=== PATIENT | male | born 1955 | race Caucasian/White ===

== ENCOUNTER 2018-06-30 16:28 | Inpatient (IN) | payer BC, OTHER ==
[2018-06-30] MEDS ORDERED: Lidocaine 2% Jelly 10 ML Urojet ONE (17:15)
[2018-06-30] MEDS ORDERED: Lidocaine 2% Jelly 10 ML Urojet MUCMEM ONE (17:16)
[2018-06-30] MEDS ORDERED: Sodium Chloride 0.9% 10 ML Syringe FLUSH PRN (18:18)
--- NOTE | 2018-06-30 18:21 | EDM.PDOC ---
ED HPI GENERAL MEDICAL PROBLEM - General Chief Complaint: Genitourinary Problem Stated Complaint: UTI Time Seen by Provider: 06/30/18 17:45 Source of Information: Reports: Patient, Family, RN Notes Reviewed History Limitations: Reports: No Limitations - History of Present Illness INITIAL COMMENTS - FREE TEXT/NARRATIVE: Franko presents today with complaints of urgency, abdominal pain, malaise, fever , and feeling confused with urinary retention since last night at 2200. He reports history of enlarged prostate and yearly visits with urology of [place], [place]. He also reports past urinary tract infections, last being in Feb, 2018. Bladder Pain Score (Numeric/FACES): 5 - Related Data Allergies Allergy/AdvReac Type Severity Reaction Status Date / Time No Known Allergies Allergy Verified 06/30/18 17:09 Home Meds: Home Meds Tamsulosin HCl 0.4 mg PO DAILY 06/30/18 [History] Past Medical History Gastrointestinal History: Reports: Colon Polyp Genitourinary History: Reports: Prostate Disorder, UTI, Recurrent - Infectious Disease History Infectious Disease History: Reports: Hepatitis B - Past Surgical History GI Surgical History: Reports: Colonoscopy, Hernia, Inguinal, Hernia Repair/Other Male Surgical History: Reports: Circumcision Musculoskeletal Surgical History: Reports: Carpal Tunnel Social & Family History - Tobacco Use Smoking Status *Q: Never Smoker - Caffeine Use Caffeine Use: Reports: Coffee - Recreational Drug Use Recreational Drug Use: No ED ROS GENERAL - Review of Systems Review Of Systems: See Below Constitutional: Reports: Fever, Chills, Malaise. Denies: Weakness HEENT: Reports: No Symptoms Respiratory: Reports: No Symptoms Cardiovascular: Reports: No Symptoms Endocrine: Reports: No Symptoms GI/Abdominal: Reports: Abdominal Pain : Reports: Flank Pain, Urgency, Urinary Retention Musculoskeletal: Reports: No Symptoms Skin: Reports: No Symptoms Neurological: Reports: No Symptoms Psychiatric: Reports: No Symptoms Hematologic/Lymphatic: Reports: No Symptoms Immunologic: Reports: No Symptoms ED EXAM, RENAL/ - Physical Exam Exam: See Below Text/Narrative:: Franko is an alert and oriented 63 ear old male presenting with fever, chills, malaise, bilateral flank pain, suprapubic pain, urinary retention with minimal urine output since 2200 last night. Exam Limited By: No Limitations General Appearance: Alert, WD/WN, Moderate Distress Eye Exam: Bilateral Eye: EOMI, Normal Inspection, PERRL Ears: Normal External Exam, Normal Canal, Hearing Grossly Normal, Normal TMs Nose: Normal Inspection, Normal Mucosa, No Blood Throat/Mouth: Normal Inspection, Normal Lips, Normal Gums, Normal Oropharynx, Normal Voice, No Airway Compromise Head: Atraumatic, Normocephalic Neck: Normal Inspection, Supple, Non-Tender, Full Range of Motion. No: Lymphadenopathy (R), Lymphadenopathy (L) Respiratory/Chest: No Respiratory Distress, Lungs Clear, Normal Breath Sounds, No Accessory Muscle Use, Chest Non-Tender Cardiovascular: Normal Peripheral Pulses, Regular Rate, Rhythm, No Edema, No Murmur, No Rub GI/Abdominal: Normal Bowel Sounds, Soft, No Distention, Other (Tenderness to suprapubic area). No: No Mass, Guarding, Rigid, Rebound Back Exam: Normal Inspection, Full Range of Motion, CVA Tenderness (R), CVA Tenderness (L) Extremities: Normal Inspection, Normal Range of Motion, Non-Tender, No Pedal Edema, Normal Capillary Refill Neurological: Alert, Oriented, CN II-XII Intact, Normal Cognition, Normal Gait, No Motor/Sensory Deficits, Other (He complains of feeling foggy/confused however he is alert and oriented. ) Psychiatric: Normal Affect, Normal Mood Skin Exam: Dry, Intact, Increased Warmth, Other (flushed) Lymphatic: No Adenopathy Course - Vital Signs Last Recorded V/S: Last Vital Signs Temp 38.5 C H 06/30/18 19:13 Pulse 94 06/30/18 20:34 Resp 16 06/30/18 19:13 BP 118/62 06/30/18 20:34 Pulse Ox 97 06/30/18 20:34 - Orders/Labs/Meds Orders: Active Orders 24 hr Category Date Time Status Jean Catheter Insertion [Insert Urinary Catheter] [OM. Care 06/30/18 17:15 Ordered PC] Q24H Urinary Catheter Assessment [RC] ASDIRECTED Care 06/30/18 17:15 Active Abdomen Pelvis w wo Cont [CT] Stat Exams 06/30/18 19:41 Taken CULTURE URINE [RM] Stat Lab 06/30/18 18:18 Received URINALYSIS W/MICROSCOPIC [UA W/MICROSCOPIC] [URIN] Stat Lab 06/30/18 17:40 Ordered Iopamidol [Isovue-300 (61%)] Med 06/30/18 20:00 Active 100 ml IV . DIRECTED Lactated Ringers [Ringers, Lactated] 1,000 ml Med 06/30/18 20:45 Active IV ASDIRECTED Sodium Chloride 0.9% [Normal Saline] 1,000 ml Med 06/30/18 18:30 Active IV ASDIRECTED Sodium Chloride 0.9% [Saline Flush] Med 06/30/18 18:18 Active 10 ml FLUSH ASDIRECTED PRN Saline Lock Insert [OM.PC] Routine Oth 06/30/18 18:18 Ordered Medication Orders Sodium Chloride (Normal Saline) 1,000 mls @ 1,000 mls/hr IV ASDIRECTED JAMSHID Last Admin: 06/30/18 18:25 Dose: 1,000 mls/hr Lactated Ringer's (Ringers, Lactated) 1,000 mls @ 250 mls/hr IV ASDIRECTED JAMSHID Iopamidol (Isovue-300 (61%)) 100 ml IV . DIRECTED JAMSHID Last Admin: 06/30/18 20:28 Dose: 100 ml Sodium Chloride (Saline Flush) 10 ml FLUSH ASDIRECTED PRN PRN Reason: Keep Vein Open Last Admin: 06/30/18 18:26 Dose: 10 ml Labs: Laboratory Tests 06/30/18 06/30/18 06/30/18 Range/Units 17:40 18:20 18:20 WBC 16.0 H (4.5-11.0) K/uL RBC 4.58 (4.30-5.90) M/uL Hgb 14.6 (12.0-15.0) g/dL Hct 42.2 (40.0-54.0) % MCV 92 (80-98) fL MCH 32 H (27-31) pg MCHC 35 (32-36) % Plt Count 209 (150-400) K/uL Neut % (Auto) 86 H (36-66) % Lymph % (Auto) 4 L (24-44) % [place] % (Auto) 9 H (2-6) % Eos % (Auto) 0 L (2-4) % Baso % (Auto) 0 (0-1) % Sodium 131 L (140-148) mmol/L Potassium 3.5 L (3.6-5.2) mmol/L Chloride 99 L (100-108) mmol/L Carbon Dioxide 22 (21-32) mmol/L Anion Gap 13.5 (5.0-14.0) mmol/L BUN 18 (7-18) mg/dL Creatinine 1.2 (0.8-1.3) mg/dL Est Cr Clr Drug Dosing 56.12 mL/min Estimated GFR (MDRD) > 60 (>60) Glucose 107 H (74-106) mg/dL Lactic Acid (0.4-2.0) mmol/L Calcium 8.5 (8.5-10.1) mg/dL Total Bilirubin 0.7 (0.2-1.0) mg/dL AST 15 (15-37) U/L ALT 17 (12-78) U/L Alkaline Phosphatase 79 (46-116) U/L C-Reactive Protein (0.0-0.3) mg/dL Total Protein 6.6 (6.4-8.2) g/dL Albumin 3.0 L (3.4-5.0) g/dL Globulin 3.6 H (2.3-3.5) g/dL Albumin/Globulin Ratio 0.8 L (1.2-2.2) Prostate Specific Ag (0.0-4.0) ug/L Urine Color Yellow Urine Appearance Slightly cloudy Urine pH 7.0 (4.5-8.0) Ur Specific Pillow 1.010 (1.008-1.030) Urine Protein Negative (NEGATIVE) mg/dL Urine Glucose (UA) Normal (NEGATIVE) mg/dL Urine Ketones Negative (NEGATIVE) mg/dL Urine Occult Blood Negative (NEGATIVE) Urine Nitrite Negative (NEGAITVE) Urine Bilirubin Negative (NEGATIVE) Urine Urobilinogen Normal (NORMAL) mg/dL Ur Leukocyte Esterase Moderate (NEGATIVE) Urine RBC 0-5 (0-5) Urine WBC 10-20 H (0-5) Ur Epithelial Cells Not seen Amorphous Sediment Rare Urine Bacteria Not seen Urine Mucus Not seen 06/30/18 06/30/18 06/30/18 Range/Units 18:20 18:20 18:20 WBC (4.5-11.0) K/uL RBC (4.30-5.90) M/uL Hgb (12.0-15.0) g/dL Hct (40.0-54.0) % MCV (80-98) fL MCH (27-31) pg MCHC (32-36) % Plt Count (150-400) K/uL Neut % (Auto) (36-66) % Lymph % (Auto) (24-44) % [place] % (Auto) (2-6) % Eos % (Auto) (2-4) % Baso % (Auto) (0-1) % Sodium (140-148) mmol/L Potassium (3.6-5.2) mmol/L Chloride (100-108) mmol/L Carbon Dioxide (21-32) mmol/L Anion Gap (5.0-14.0) mmol/L BUN (7-18) mg/dL Creatinine (0.8-1.3) mg/dL Est Cr Clr Drug Dosing mL/min Estimated GFR (MDRD) (>60) Glucose (74-106) mg/dL Lactic Acid 1.0 (0.4-2.0) mmol/L Calcium (8.5-10.1) mg/dL Total Bilirubin (0.2-1.0) mg/dL AST (15-37) U/L ALT (12-78) U/L Alkaline Phosphatase (46-116) U/L C-Reactive Protein 3.70 H (0.0-0.3) mg/dL Total Protein (6.4-8.2) g/dL Albumin (3.4-5.0) g/dL Globulin (2.3-3.5) g/dL Albumin/Globulin Ratio (1.2-2.2) Prostate Specific Ag 10.1 H (0.0-4.0) ug/L Urine Color Urine Appearance Urine pH (4.5-8.0) Ur Specific Pillow (1.008-1.030) Urine Protein (NEGATIVE) mg/dL Urine Glucose (UA) (NEGATIVE) mg/dL Urine Ketones (NEGATIVE) mg/dL Urine Occult Blood (NEGATIVE) Urine Nitrite (NEGAITVE) Urine Bilirubin (NEGATIVE) Urine Urobilinogen (NORMAL) mg/dL Ur Leukocyte Esterase (NEGATIVE) Urine RBC (0-5) Urine WBC (0-5) Ur Epithelial Cells Amorphous Sediment Urine Bacteria Urine Mucus Patient lab work reviewed with him, we will complete abdominal/pelvis CT with and without contrast. Meds: Medications Generic Name Dose Route Start Last Admin Trade Name Freq PRN Reason Stop Dose Admin Sodium Chloride 1,000 mls @ 1,000 mls/hr 06/30/18 18:30 06/30/18 18:25 Normal Saline IV 1,000 mls/hr ASDIRECTED JAMSHID Administration Lactated Ringer's 1,000 mls @ 250 mls/hr 06/30/18 20:45 Ringers, Lactated IV ASDIRECTED JAMSHID Iopamidol 100 ml 06/30/18 20:00 06/30/18 20:28 Isovue-300 (61%) IV 100 ml . DIRECTED JAMSHID Administration Sodium Chloride 10 ml 06/30/18 18:18 06/30/18 18:26 Saline Flush FLUSH 10 ml ASDIRECTED PRN Administration Keep Vein Open Discontinued Medications Generic Name Dose Route Start Last Admin Trade Name Kimaniq PRN Reason Stop Dose Admin Acetaminophen 1,000 mg/ Premix 100 mls @ 400 mls/hr 06/30/18 19:23 06/30/18 19:41 IV 06/30/18 19:37 400 mls/hr NOW ONE Administration Sodium Chloride 80 mls @ 3.5 mls/sec 06/30/18 19:56 06/30/18 20:28 Normal Saline IV 06/30/18 19:57 3 mls/sec ONETIME ONE Administration Ibuprofen 800 mg 06/30/18 21:30 Motrin PO 06/30/18 21:31 ONETIME ONE Lidocaine HCl 10 ml 06/30/18 17:16 06/30/18 17:25 Xylocaine 2% Jelly MUCMEM 06/30/18 17:17 10 ml ONETIME ONE Administration Lidocaine HCl Confirm 06/30/18 17:15 06/30/18 17:25 Xylocaine 2% Jelly Administered 06/30/18 17:16 Not Given Dose 10 ml .ROUTE .STK-MED ONE Sodium Chloride 10 ml 06/30/18 19:56 06/30/18 20:28 Saline Flush FLUSH 06/30/18 19:57 10 ml ONETIME ONE Administration Temperature recheck = 102.5 F, patient will be provided ibuprofen 800mg PO. Patient case discussed with Dr. Russell, Dr. Maloney from the [place] and Leigh Nascimento NP. Franko will be admitted for rever, UTI. Patient and his son are in agreement with plan. - Radiology Interpretation Free Text/Narrative:: CT scan of abdomen and pelvis with and without contrast impression: No hydronephrosis. Urinary bladder is catheterized and fully decompressed. Diffuse colonic diverticulosis. Prostate gland hypertrophy. - Re-Assessments/Exams Free Text/Narrative Re-Assessment/Exam: 06/30/18 20:[address] scan Free Text/Narrative Re-Assessment/Exam: 06/30/18 21:[address] Jaclyn Maloney [facility], patient is approved to be admitted for care in [facility] Departure - Departure Time of Disposition: 21:39 Disposition: Admitted As Inpatient 65 Condition: Fair Clinical Impression: UTI, Urinary tract infectious disease, Fever - Discharge Information *PRESCRIPTION DRUG MONITORING PROGRAM REVIEWED*: No *COPY OF PRESCRIPTION DRUG MONITORING REPORT IN PATIENT NELIDA: No Referrals: PCP,None [Primary Care Provider] - Forms: ED Department Discharge - My Orders Last 24 Hours: My Active Orders 06/30/18 17:15 Jean Catheter Insertion [Insert Urinary Catheter] [OM.PC] Q24H Urinary Catheter Assessment [RC] ASDIRECTED 06/30/18 17:40 URINALYSIS W/MICROSCOPIC [UA W/MICROSCOPIC] [URIN] Stat 06/30/18 18:18 CULTURE URINE [RM] Stat Sodium Chloride 0.9% [Saline Flush] 10 ml FLUSH ASDIRECTED PRN Saline Lock Insert [OM.PC] Routine 06/30/18 18:30 Sodium Chloride 0.9% [Normal Saline] 1,000 ml IV ASDIRECTED 06/30/18 19:41 Abdomen Pelvis w wo Cont [CT] Stat 06/30/18 20:00 Iopamidol [Isovue-300 (61%)] 100 ml IV . DIRECTED 06/30/18 20:45 Lactated Ringers [Ringers, Lactated] 1,000 ml IV ASDIRECTED - Assessment/Plan Last 24 Hours: My Active Orders 06/30/18 17:15 Jean Catheter Insertion [Insert Urinary Catheter] [OM.PC] Q24H Urinary Catheter Assessment [RC] ASDIRECTED 06/30/18 17:40 URINALYSIS W/MICROSCOPIC [UA W/MICROSCOPIC] [URIN] Stat 06/30/18 18:18 CULTURE URINE [RM] Stat Sodium Chloride 0.9% [Saline Flush] 10 ml FLUSH ASDIRECTED PRN Saline Lock Insert [OM.PC] Routine 06/30/18 18:30 Sodium Chloride 0.9% [Normal Saline] 1,000 ml IV ASDIRECTED 06/30/18 19:41 Abdomen Pelvis w wo Cont [CT] Stat 06/30/18 20:00 Iopamidol [Isovue-300 (61%)] 100 ml IV . DIRECTED 06/30/18 20:45 Lactated Ringers [Ringers, Lactated] 1,000 ml IV ASDIRECTED Assessment:: Fever UTI Plan: Patient will be admitted per Nichelle aNscimento NP.
[2018-06-30] MEDS ORDERED: Sodium Chloride 0.9% 1,000 ML IV SCH ×2 (18:30→22:58)
[2018-06-30] MEDS ORDERED: Acetaminophen 1,000 MG in Premix Bag 1 BAG IV ONE (19:23)
[2018-06-30] MEDS ORDERED: Sodium Chloride 0.9% 80 ML IV ONE (19:56)
[2018-06-30] MEDS ORDERED: Sodium Chloride 0.9% 10 ML Syringe FLUSH ONE (19:56)
[2018-06-30] MEDS ORDERED: Iopamidol 612 MG/ML 100 ML Bottle IV SCH (20:00)
[2018-06-30] MEDS ORDERED: Lactated Ringers 1,000 ML IV SCH ×2 (20:45→22:45)
[2018-06-30] MEDS ORDERED: Ibuprofen 800 MG Tab PO ONE (21:30)
[2018-06-30] MEDS ORDERED: cefTRIAXone 2 GM in Sodium Chloride 0.9% 50 ML IV ONE (22:40)
[2018-06-30] MEDS ORDERED: Albuterol/Ipratropium 3.0-0.5 MG/3 ML Neb Soln NEB PRN (22:58)
[2018-06-30] MEDS ORDERED: Docusate Sodium 100 MG Cap PO PRN (22:58)
[2018-06-30] MEDS ORDERED: oxyCODONE 5 MG Tab PO PRN (22:58)
[2018-06-30] MEDS ORDERED: Ondansetron 4 MG Tab.DIS PO PRN (22:58)
[2018-06-30] MEDS ORDERED: Albuterol 0.083% 2.5 MG/3 ML Neb Soln NEB PRN (22:58)
[2018-06-30] MEDS ORDERED: Morphine 2 MG/ML Syringe IVPUSH PRN (22:58)
[2018-06-30] MEDS ORDERED: Ketorolac 30 MG/ML SDV IVPUSH PRN (22:58)
[2018-06-30] MEDS ORDERED: Levofloxacin/Dextrose 5%-Water 750 MG in Premix Bag 1 BAG IV SCH (22:58)
[2018-06-30] MEDS ORDERED: Ondansetron 4 MG/2 ML SDV IV PRN (22:58)
[2018-06-30] MEDS ORDERED: LORazepam 2 MG/ML SDV IV PRN (22:58)
[2018-06-30] MEDS ORDERED: Bisacodyl 5 MG Tab PO PRN (22:58)
[2018-06-30] MEDS ORDERED: Ibuprofen 800 MG Tab PO PRN (22:58)
[2018-06-30] MEDS ORDERED: Ketorolac 30 MG/ML SDV IVPUSH ONE (23:05)
--- NOTE | 2018-06-30 23:29 | PCM.HP ---
H&P History of Present Illness - General Date of Service: 06/30/18 Admit Problem/Dx: Admission Diagnosis/Problem Admission Diagnosis/Problem Urinary tract infection Source of Information: Patient, Provider, RN History Limitations: Reports: No Limitations - History of Present Illness Initial Comments - Free Text/Narative: Mr. Soto presents today with complaints of urgency, abdominal pain, malaise, fever, and feeling confused. He has history of urinary retention since last night at 2200. He reports history of enlarged prostate and yearly visits with urology of [place], [place]. He also reports past urinary tract infections, last being in Feb, 2018. He reports 28 years of "problems" with bladder infections. While in ER his vital signs elevated. temperate from 102 to 103.9, pules 94 to 113, resp rate 16 to 38, blood pressure 118/62. oxygen sat 97%. labs WBC 16, hgb 14.6, hct 42.2, plt 32, lactic acid 1.0, c-reactive protein 3.70, chemistries Na+131, K+3.5, cl 99, aniion gap 13.5, BUN 18, cr. 1.2, glucose 107. Urine WBC 10-20, RBC 0-5, rbc 0-5, moderate leukocytes. CT abdomen pelvis diverticulosis, see full report. IV antibiotic started in ER, Rocephin 2 gm IV every 8 hours and Levoquin 750mg IV every 24 hours, IV solution x 2 liters, then NS at 125ml/hr. treated for fever with tylenol, motrin and toradol 30mg iv. admitted to [facility]. Onset of Symptoms: Reports: Gradual Duration of Symptoms: Reports: Day(s): (two), Getting Worse Location: Reports: Generalized Quality: Reports: Same as Previous Episode Improves with: Reports: None Worsens with: Reports: None Associated Symptoms: Reports: Fever/Chills, Weakness Bladder Pain Score (Numeric/FACES): 5 - Related Data Allergies/Adverse Reactions: Allergies Allergy/AdvReac Type Severity Reaction Status Date / Time No Known Allergies Allergy Verified 06/30/18 17:09 Home Medications: Home Meds Tamsulosin HCl 0.4 mg PO DAILY 06/30/18 [History] Iron 18 mg PO QAM 07/01/18 [History] Past Medical History Gastrointestinal History: Reports: Colon Polyp Genitourinary History: Reports: Prostate Disorder, UTI, Recurrent - Infectious Disease History Infectious Disease History: Reports: Hepatitis B - Past Surgical History GI Surgical History: Reports: Colonoscopy, Hernia, Inguinal, Hernia Repair/Other Male Surgical History: Reports: Circumcision Musculoskeletal Surgical History: Reports: Carpal Tunnel Social & Family History - Tobacco Use Smoking Status *Q: Never Smoker - Caffeine Use Caffeine Use: Reports: Coffee - Recreational Drug Use Recreational Drug Use: No H&P Review of Systems - Review of Systems: Review Of Systems: See Below General: Reports: Fever, Chills, Malaise, Other (urinary tract symptoms) HEENT: Reports: Glasses Pulmonary: Reports: No Symptoms Cardiovascular: Reports: No Symptoms Gastrointestinal: Reports: No Symptoms Genitourinary: Reports: Dysuria, Frequency, Urgency, Retention Musculoskeletal: Reports: No Symptoms Skin: Reports: No Symptoms Psychiatric: Reports: Confusion (with high temps) Neurological: Reports: No Symptoms, Change in Speech Immunologic: Reports: No Symptoms Exam - Exam Exam: See Below - Vital Signs Vital Signs: Last Vital Signs Temp 39.9 C H 06/30/18 23:01 Pulse 104 H 06/30/18 23:01 Resp 34 H 06/30/18 23:01 BP 118/65 06/30/18 23:01 Pulse Ox 94 L 06/30/18 23:01 Weight: 80.5 kg - Exam Quality Assessment: Urinary Catheter, DVT Prophylaxis General: Oriented, Cooperative, Mild Distress HEENT: PERRLA, Conjunctiva Clear, EACs Clear, EOMI, Hearing Intact, Mucosa Moist & [place], Posterior Pharynx Clear, Pupils Equal, Glasses Neck: Supple, Trachea Midline, 2 Lungs: Clear to Auscultation, Normal Respiratory Effort Cardiovascular: Regular Rate, Regular Rhythm, Normal S1, Normal S2, Tachycardia GI/Abdominal Exam: Normal Bowel Sounds, Soft, Non-Tender (Male) Exam: Normal Inspection, Circumcised, Other (varghese cath inplace) Rectal (Males) Exam: Deferred Back Exam: Normal Inspection, Full Range of Motion Extremities: Normal Inspection, Normal Range of Motion, Non-Tender, No Pedal Edema, Normal Capillary Refill Peripheral Pulses: 2+: Radial (L), Radial (R), Dorsalis Pedis (L), Dorsalis Pedis (R) Skin: Warm, Dry, Intact Neurological: Cranial Nerves Intact, Reflexes Equal Bilateral Neuro Extensive - Mental Status: Alert, Oriented x3, Normal Mood/Affect, Normal Cognition Neuro Extensive - Motor, Sensory, Reflexes: Normal Gait, Normal Reflexes Psychiatric: Alert, Normal Affect, Normal Mood - Patient Data Lab Results Last 24 hrs: Laboratory Results - last 24 hr 06/30/18 06/30/18 06/30/18 Range/Units 17:40 18:20 18:20 WBC 16.0 H (4.5-11.0) K/uL RBC 4.58 (4.30-5.90) M/uL Hgb 14.6 (12.0-15.0) g/dL Hct 42.2 (40.0-54.0) % MCV 92 (80-98) fL MCH 32 H (27-31) pg MCHC 35 (32-36) % Plt Count 209 (150-400) K/uL Neut % (Auto) 86 H (36-66) % Lymph % (Auto) 4 L (24-44) % [place] % (Auto) 9 H (2-6) % Eos % (Auto) 0 L (2-4) % Baso % (Auto) 0 (0-1) % Sodium 131 L (140-148) mmol/L Potassium 3.5 L (3.6-5.2) mmol/L Chloride 99 L (100-108) mmol/L Carbon Dioxide 22 (21-32) mmol/L Anion Gap 13.5 (5.0-14.0) mmol/L BUN 18 (7-18) mg/dL Creatinine 1.2 (0.8-1.3) mg/dL Est Cr Clr Drug Dosing 56.12 mL/min Estimated GFR (MDRD) > 60 (>60) Glucose 107 H (74-106) mg/dL Lactic Acid (0.4-2.0) mmol/L Calcium 8.5 (8.5-10.1) mg/dL Total Bilirubin 0.7 (0.2-1.0) mg/dL AST 15 (15-37) U/L ALT 17 (12-78) U/L Alkaline Phosphatase 79 (46-116) U/L C-Reactive Protein (0.0-0.3) mg/dL Total Protein 6.6 (6.4-8.2) g/dL Albumin 3.0 L (3.4-5.0) g/dL Globulin 3.6 H (2.3-3.5) g/dL Albumin/Globulin Ratio 0.8 L (1.2-2.2) Prostate Specific Ag (0.0-4.0) ug/L Urine Color Yellow Urine Appearance Slightly cloudy Urine pH 7.0 (4.5-8.0) Ur Specific [place] 1.010 (1.008-1.030) Urine Protein Negative (NEGATIVE) mg/dL Urine Glucose (UA) Normal (NEGATIVE) mg/dL Urine Ketones Negative (NEGATIVE) mg/dL Urine Occult Blood Negative (NEGATIVE) Urine Nitrite Negative (NEGAITVE) Urine Bilirubin Negative (NEGATIVE) Urine Urobilinogen Normal (NORMAL) mg/dL Ur Leukocyte Esterase Moderate (NEGATIVE) Urine RBC 0-5 (0-5) Urine WBC 10-20 H (0-5) Ur Epithelial Cells Not seen Amorphous Sediment Rare Urine Bacteria Not seen Urine Mucus Not seen 06/30/18 06/30/18 06/30/18 Range/Units 18:20 18:20 18:20 WBC (4.5-11.0) K/uL RBC (4.30-5.90) M/uL Hgb (12.0-15.0) g/dL Hct (40.0-54.0) % MCV (80-98) fL MCH (27-31) pg MCHC (32-36) % Plt Count (150-400) K/uL Neut % (Auto) (36-66) % Lymph % (Auto) (24-44) % [place] % (Auto) (2-6) % Eos % (Auto) (2-4) % Baso % (Auto) (0-1) % Sodium (140-148) mmol/L Potassium (3.6-5.2) mmol/L Chloride (100-108) mmol/L Carbon Dioxide (21-32) mmol/L Anion Gap (5.0-14.0) mmol/L BUN (7-18) mg/dL Creatinine (0.8-1.3) mg/dL Est Cr Clr Drug Dosing mL/min Estimated GFR (MDRD) (>60) Glucose (74-106) mg/dL Lactic Acid 1.0 (0.4-2.0) mmol/L Calcium (8.5-10.1) mg/dL Total Bilirubin (0.2-1.0) mg/dL AST (15-37) U/L ALT (12-78) U/L Alkaline Phosphatase (46-116) U/L C-Reactive Protein 3.70 H (0.0-0.3) mg/dL Total Protein (6.4-8.2) g/dL Albumin (3.4-5.0) g/dL Globulin (2.3-3.5) g/dL Albumin/Globulin Ratio (1.2-2.2) Prostate Specific Ag 10.1 H (0.0-4.0) ug/L Urine Color Urine Appearance Urine pH (4.5-8.0) Ur Specific [place] (1.008-1.030) Urine Protein (NEGATIVE) mg/dL Urine Glucose (UA) (NEGATIVE) mg/dL Urine Ketones (NEGATIVE) mg/dL Urine Occult Blood (NEGATIVE) Urine Nitrite (NEGAITVE) Urine Bilirubin (NEGATIVE) Urine Urobilinogen (NORMAL) mg/dL Ur Leukocyte Esterase (NEGATIVE) Urine RBC (0-5) Urine WBC (0-5) Ur Epithelial Cells Amorphous Sediment Urine Bacteria Urine Mucus Result Diagrams: 06/30/18 18:20 06/30/18 18:20 - Problem List (1) UTI, Urinary tract infectious disease SNOMED Code(s): 59005238 ICD Code: N39.0 - URINARY TRACT INFECTION, SITE NOT SPECIFIED Status: Acute Priority: High Current Visit: Yes Problem List Initiated/Reviewed/Updated: Yes Orders Last 24hrs: Active Orders 24 hr Category Date Time Status Patient Status [ADT] Routine ADT 06/30/18 22:58 Active Intake and Output [RC] QSHIFT Care 06/30/18 22:58 Active Notify Provider Vital Signs [RC] ASDIRECTED Care 06/30/18 22:58 Active Oxygen Therapy [RC] PRN Care 06/30/18 22:58 Active Pulse Oximetry [RC] PRN Care 06/30/18 22:58 Active RT Aerosol Therapy [RC] ASDIRECTED Care 06/30/18 22:58 Active Up ad [place] [RC] ASDIRECTED Care 06/30/18 22:58 Active VTE/DVT Education [RC] Per Unit Routine Care 06/30/18 22:58 Active Vital Signs [RC] Q1H Care 06/30/18 22:58 Active Regular Diet [DIET] Diet 06/30/18 Breakfast Active Abdomen Pelvis w wo Cont [CT] Stat Exams 06/30/18 19:41 Taken BASIC METABOLIC PANEL,BMP [CHEM] AM Lab 07/01/18 05:11 Ordered CBC WITH AUTO DIFF [HEME] AM Lab 07/01/18 05:11 Ordered CULTURE BLOOD [BC] Stat Lab 06/30/18 18:20 Received CULTURE BLOOD [BC] Stat Lab 06/30/18 19:59 Received CULTURE URINE [RM] Stat Lab 06/30/18 18:18 Received LACTIC ACID [CHEM] AM Lab 07/02/18 05:11 Ordered URINALYSIS W/MICROSCOPIC [UA W/MICROSCOPIC] [URIN] Stat Lab 06/30/18 17:40 Ordered Acetaminophen [Tylenol] Med 06/30/18 22:58 Active 650 mg PO Q4H PRN Albuterol [Proventil Neb Soln] Med 06/30/18 22:58 Active 2.5 mg NEB Q4H PRN Albuterol/Ipratropium [DuoNeb 3.0-0.5 MG/3 ML] Med 06/30/18 22:58 Active 3 ml NEB QID PRN Bisacodyl [Dulcolax] Med 06/30/18 22:58 Active 5 mg PO DAILY PRN Docusate Sodium [Colace] Med 06/30/18 22:58 Active 100 mg PO BID PRN Enoxaparin [Lovenox] Med 07/01/18 09:00 Active 40 mg SUBCUT DAILY Ibuprofen [Motrin] Med 06/30/18 22:58 Active 800 mg PO Q6H PRN Ketorolac [Toradol] Med 06/30/18 22:58 Active 30 mg IVPUSH Q6H PRN LORazepam [Ativan] Med 06/30/18 22:58 Active 1 mg IV Q6H PRN Levofloxacin/Dextrose 5%-Water [Levaquin in D5W 750 MG/ Med 06/30/18 22:58 Active 150 ML] 750 mg Premix Bag 1 bag IV Q24H Morphine Med 06/30/18 22:58 Active 2 mg IVPUSH Q2H PRN Ondansetron [Zofran ODT] Med 06/30/18 22:58 Active 4 mg PO Q6H PRN Ondansetron [Zofran] Med 06/30/18 22:58 Active 4 mg IV Q4H PRN Sodium Chloride 0.9% [Normal Saline] 1,000 ml Med 06/30/18 22:58 Active IV ASDIRECTED Tamsulosin [Flomax] Med 07/01/18 09:00 Active 0.4 mg PO DAILY cefTRIAXone [Rocephin] 2 gm Med 07/01/18 06:10 Active Sodium Chloride 0.9% [Normal Saline] 50 ml IV Q8H oxyCODONE Med 06/30/18 22:58 Active 10 mg PO Q4H PRN Resuscitation Status Routine Resus Stat 06/30/18 22:44 Ordered Medication Orders Acetaminophen (Tylenol) 650 mg PO Q4H PRN PRN Reason: Pain (Mild 1-3)/fever Albuterol (Proventil Neb Soln) 2.5 mg NEB Q4H PRN PRN Reason: Shortness Of Breath/wheezing Albuterol/Ipratropium (Duoneb 3.0-0.5 Mg/3 Ml) 3 ml NEB QID PRN PRN Reason: Shortness Of Breath/wheezing Bisacodyl (Dulcolax) 5 mg PO DAILY PRN PRN Reason: Constipation Docusate Sodium (Colace) 100 mg PO BID PRN PRN Reason: Constipation Enoxaparin Sodium (Lovenox) 40 mg SUBCUT DAILY [facility] Ceftriaxone Sodium 2 gm/ (Sodium Chloride) 50 mls @ 100 mls/hr IV Q8H [facility] Levofloxacin/Dextrose 750 mg/ (Premix) 150 mls @ 100 mls/hr IV Q24H [facility] Sodium Chloride (Normal Saline) 1,000 mls @ 999 mls/hr IV ASDIRECTED [facility] Last Admin: 06/30/18 23:01 Dose: 999 mls/hr Ibuprofen (Motrin) 800 mg PO Q6H PRN PRN Reason: Pain (mild 1-3) Ketorolac Tromethamine (Toradol) 30 mg IVPUSH Q6H PRN PRN Reason: Pain (moderate 4-6) Lorazepam (Ativan) 1 mg IV Q6H PRN PRN Reason: Nausea/Vomiting Morphine Sulfate (Morphine) 2 mg IVPUSH Q2H PRN PRN Reason: Pain (severe 7-10) Ondansetron HCl (Zofran Odt) 4 mg PO Q6H PRN PRN Reason: Nausea able to take PO Ondansetron HCl (Zofran) 4 mg IV Q4H PRN PRN Reason: Nausea/Vomiting Oxycodone HCl (Oxycodone) 10 mg PO Q4H PRN PRN Reason: Pain (moderate 4-6) Tamsulosin HCl (Flomax) 0.4 mg PO DAILY [facility] Assessment/Plan Comment:: Mr. Soto presents today with complaints of urgency, abdominal pain, malaise, fever, and feeling confused. He has history of urinary retention since last night at 2200. Assessment/Plan Comment:: Assessment and plan - . He reports history of enlarged prostate and yearly visits with urology of [place], [place]. He also reports past urinary tract infections, last being in Feb, 2018. He reports 28 years of "problems" with bladder infections. While in ER his vital signs elevated. temperate from 102 to 103.9, pules 94 to 113, resp rate 16 to 38, blood pressure 118/62. oxygen sat 97%. labs WBC 16, hgb 14.6, hct 42.2, plt 32, lactic acid 1.0, c-reactive protein 3.70, chemistries Na+131, K+3.5, cl 99, anion gap 13.5, BUN 18, cr. 1.2, glucose 107. Urine WBC 10-20, RBC 0-5, rbc 0-5, moderate leukocytes. CT abdomen pelvis diverticulosis, see full report. IV antibiotic started in ER, Rocephin 2 gm IV every 8 hours and Levoquin 750mg IV every 24 hours, IV solution x 2 liters, then NS at 125ml/hr. treated for fever with tylenol, motrin and toradol 30mg iv. admitted to [address] [place] [id number]-Surg. Urinary tract infecton, early Sepsis -IV fluids, given 2 liter in ER, then at rate of 125ml/hr -IV Rocephin 2 grams every 8 hours -IV Levofloxacin 750mg every 24 hours -blood culture pending -am labs CBC, BMP, Lactic acid Maintenance issues - - DVT prophylaxis -Lovenox 40mg subcut - GI prophylaxis - PPI Protonix 40 mg daily - Nutrition - regular diet - Varghese catheter - indwelling cath CODE STATUS - FULL Admission justification - This patient will be admitted for inpatient services and is medically appropriate meeting medical necessity for inpatient admission as outlined in my documentation. I reasonably expect the patient will require inpatient services that span a period time over 2 midnights. I reasonably expect this patient to be discharged or transferred within 96 hours after admission to the [facility]. Disposition - anticipate discharge to home after the hospital stay Primary care physician - Katiuska GUNN. Hospitialist: Diego Orourke M.D.
[2018-07-01] MEDS ORDERED: Sodium Chloride 0.9% 1,000 ML IV SCH ×2 (02:00→11:45)
[2018-07-01] MEDS ORDERED: cefTRIAXone 2 GM in Sodium Chloride 0.9% 50 ML IV SCH (06:10)
[2018-07-01] MEDS: Acetaminophen 325 MG Tab PO PRN ×2 (07:25→15:52)
[2018-07-01] MEDS: Tamsulosin 0.4 MG Cap.ER PO SCH (09:05)
[2018-07-01] MEDS: Enoxaparin 40 MG/0.4 ML Syringe SUBCUT SCH (09:05)
--- NOTE | 2018-07-01 11:42 | PCM.PN ---
- General Info Date of Service: 07/01/18 Subjective Update: Mr. Soto is a 63-year-old gentleman who was admitted through the emergency department last night with fever and chills, thought secondary to urinary tract infection. Evaluation in the emergency department did show increased white blood cells in the urine but no obvious bacteria and only mild elevation in leukocyte esterase, nitrites were negative. CT scan of the abdomen and pelvis was obtained showing no obvious source of infection. Chest x-ray has been obtained this morning and shows no obvious infiltrates to my review, radiologic review pending tomorrow morning. Because of his history of recurrent urinary tract infections, most recent infection in February of this year, he was placed on more broad-spectrum IV antibiotic therapy with ceftriaxone and levofloxacin. He did appear to have a component of sepsis on admission and is been treated with IV fluid replacement in addition to the antibiotics. Blood and urine cultures are pending at the time of this dictation. He has felt improved since admission , recurrent temperature elevation this morning but not as high as it had been last night. - Review of Systems General: Reports: Fever, Weakness, Chills. Denies: Appetite Pulmonary: Reports: No Symptoms Cardiovascular: Reports: No Symptoms Gastrointestinal: Reports: No Symptoms Genitourinary: Reports: No Symptoms - Patient Data Vitals - Most Recent: Last Vital Signs Temp 98.4 F 07/01/18 11:00 Pulse 85 07/01/18 11:00 Resp 18 07/01/18 11:00 BP 102/56 L 07/01/18 11:00 Pulse Ox 97 07/01/18 11:00 Weight - Most Recent: 177 lb 7.554 oz I&O - Last 24 Hours: Intake & Output 06/30/18 07/01/18 07/01/18 22:59 06:59 14:59 Intake Total 1151 Output Total 1100 900 Balance -1100 251 Lab Results Last 24 Hours: Laboratory Results - last 24 hr 06/30/18 06/30/18 06/30/18 Range/Units 17:40 18:20 18:20 WBC 16.0 H (4.5-11.0) K/uL RBC 4.58 (4.30-5.90) M/uL Hgb 14.6 (12.0-15.0) g/dL Hct 42.2 (40.0-54.0) % MCV 92 (80-98) fL MCH 32 H (27-31) pg MCHC 35 (32-36) % Plt Count 209 (150-400) K/uL Neut % (Auto) 86 H (36-66) % Lymph % (Auto) 4 L (24-44) % [place] % (Auto) 9 H (2-6) % Eos % (Auto) 0 L (2-4) % Baso % (Auto) 0 (0-1) % Sodium 131 L (140-148) mmol/L Potassium 3.5 L (3.6-5.2) mmol/L Chloride 99 L (100-108) mmol/L Carbon Dioxide 22 (21-32) mmol/L Anion Gap 13.5 (5.0-14.0) mmol/L BUN 18 (7-18) mg/dL Creatinine 1.2 (0.8-1.3) mg/dL Est Cr Clr Drug Dosing 56.12 mL/min Estimated GFR (MDRD) > 60 (>60) Glucose 107 H (74-106) mg/dL Lactic Acid (0.4-2.0) mmol/L Calcium 8.5 (8.5-10.1) mg/dL Total Bilirubin 0.7 (0.2-1.0) mg/dL AST 15 (15-37) U/L ALT 17 (12-78) U/L Alkaline Phosphatase 79 (46-116) U/L C-Reactive Protein (0.0-0.3) mg/dL Total Protein 6.6 (6.4-8.2) g/dL Albumin 3.0 L (3.4-5.0) g/dL Globulin 3.6 H (2.3-3.5) g/dL Albumin/Globulin Ratio 0.8 L (1.2-2.2) Prostate Specific Ag (0.0-4.0) ug/L Urine Color Yellow Urine Appearance Slightly cloudy Urine pH 7.0 (4.5-8.0) Ur Specific [place] 1.010 (1.008-1.030) Urine Protein Negative (NEGATIVE) mg/dL Urine Glucose (UA) Normal (NEGATIVE) mg/dL Urine Ketones Negative (NEGATIVE) mg/dL Urine Occult Blood Negative (NEGATIVE) Urine Nitrite Negative (NEGAITVE) Urine Bilirubin Negative (NEGATIVE) Urine Urobilinogen Normal (NORMAL) mg/dL Ur Leukocyte Esterase Moderate (NEGATIVE) Urine RBC 0-5 (0-5) Urine WBC 10-20 H (0-5) Ur Epithelial Cells Not seen Amorphous Sediment Rare Urine Bacteria Not seen Urine Mucus Not seen 06/30/18 06/30/18 06/30/18 Range/Units 18:20 18:20 18:20 WBC (4.5-11.0) K/uL RBC (4.30-5.90) M/uL Hgb (12.0-15.0) g/dL Hct (40.0-54.0) % MCV (80-98) fL MCH (27-31) pg MCHC (32-36) % Plt Count (150-400) K/uL Neut % (Auto) (36-66) % Lymph % (Auto) (24-44) % [place] % (Auto) (2-6) % Eos % (Auto) (2-4) % Baso % (Auto) (0-1) % Sodium (140-148) mmol/L Potassium (3.6-5.2) mmol/L Chloride (100-108) mmol/L Carbon Dioxide (21-32) mmol/L Anion Gap (5.0-14.0) mmol/L BUN (7-18) mg/dL Creatinine (0.8-1.3) mg/dL Est Cr Clr Drug Dosing mL/min Estimated GFR (MDRD) (>60) Glucose (74-106) mg/dL Lactic Acid 1.0 (0.4-2.0) mmol/L Calcium (8.5-10.1) mg/dL Total Bilirubin (0.2-1.0) mg/dL AST (15-37) U/L ALT (12-78) U/L Alkaline Phosphatase (46-116) U/L C-Reactive Protein 3.70 H (0.0-0.3) mg/dL Total Protein (6.4-8.2) g/dL Albumin (3.4-5.0) g/dL Globulin (2.3-3.5) g/dL Albumin/Globulin Ratio (1.2-2.2) Prostate Specific Ag 10.1 H (0.0-4.0) ug/L Urine Color Urine Appearance Urine pH (4.5-8.0) Ur Specific [place] (1.008-1.030) Urine Protein (NEGATIVE) mg/dL Urine Glucose (UA) (NEGATIVE) mg/dL Urine Ketones (NEGATIVE) mg/dL Urine Occult Blood (NEGATIVE) Urine Nitrite (NEGAITVE) Urine Bilirubin (NEGATIVE) Urine Urobilinogen (NORMAL) mg/dL Ur Leukocyte Esterase (NEGATIVE) Urine RBC (0-5) Urine WBC (0-5) Ur Epithelial Cells Amorphous Sediment Urine Bacteria Urine Mucus 07/01/18 07/01/18 Range/Units 06:09 06:09 WBC 16.8 H (4.5-11.0) K/uL RBC 4.20 L (4.30-5.90) M/uL Hgb 13.4 (12.0-15.0) g/dL Hct 39.9 L (40.0-54.0) % MCV 95 (80-98) fL MCH 32 H (27-31) pg MCHC 34 (32-36) % Plt Count 180 (150-400) K/uL Neut % (Auto) 90 H (36-66) % Lymph % (Auto) 6 L (24-44) % [place] % (Auto) 4 (2-6) % Eos % (Auto) 0 L (2-4) % Baso % (Auto) 0 (0-1) % Sodium 136 L (140-148) mmol/L Potassium 4.2 (3.6-5.2) mmol/L Chloride 105 (100-108) mmol/L Carbon Dioxide 23 (21-32) mmol/L Anion Gap 12.2 (5.0-14.0) mmol/L BUN 21 H (7-18) mg/dL Creatinine 1.5 H (0.8-1.3) mg/dL Est Cr Clr Drug Dosing 44.90 mL/min Estimated GFR (MDRD) 47 L (>60) Glucose 109 H (74-106) mg/dL Lactic Acid (0.4-2.0) mmol/L Calcium 7.6 L (8.5-10.1) mg/dL Total Bilirubin (0.2-1.0) mg/dL AST (15-37) U/L ALT (12-78) U/L Alkaline Phosphatase (46-116) U/L C-Reactive Protein (0.0-0.3) mg/dL Total Protein (6.4-8.2) g/dL Albumin (3.4-5.0) g/dL Globulin (2.3-3.5) g/dL Albumin/Globulin Ratio (1.2-2.2) Prostate Specific Ag (0.0-4.0) ug/L Urine Color Urine Appearance Urine pH (4.5-8.0) Ur Specific [place] (1.008-1.030) Urine Protein (NEGATIVE) mg/dL Urine Glucose (UA) (NEGATIVE) mg/dL Urine Ketones (NEGATIVE) mg/dL Urine Occult Blood (NEGATIVE) Urine Nitrite (NEGAITVE) Urine Bilirubin (NEGATIVE) Urine Urobilinogen (NORMAL) mg/dL Ur Leukocyte Esterase (NEGATIVE) Urine RBC (0-5) Urine WBC (0-5) Ur Epithelial Cells Amorphous Sediment Urine Bacteria Urine Mucus Med Orders - Current: Current Medications Acetaminophen (Tylenol) 650 mg PO Q4H PRN PRN Reason: Pain (Mild 1-3)/fever Last Admin: 07/01/18 07:25 Dose: 650 mg Albuterol (Proventil Neb Soln) 2.5 mg NEB Q4H PRN PRN Reason: Shortness Of Breath/wheezing Albuterol/Ipratropium (Duoneb 3.0-0.5 Mg/3 Ml) 3 ml NEB QID PRN PRN Reason: Shortness Of Breath/wheezing Bisacodyl (Dulcolax) 5 mg PO DAILY PRN PRN Reason: Constipation Docusate Sodium (Colace) 100 mg PO BID PRN PRN Reason: Constipation Enoxaparin Sodium (Lovenox) 40 mg SUBCUT DAILY [facility] Last Admin: 07/01/18 09:05 Dose: 40 mg Levofloxacin/Dextrose 750 mg/ (Premix) 150 mls @ 100 mls/hr IV Q24H [facility] Sodium Chloride (Normal Saline) 1,000 mls @ 75 mls/hr IV ASDIRECTED [facility] Ceftriaxone Sodium 1 gm/ (Sodium Chloride) 50 mls @ 100 mls/hr IV Q24H [facility] Ibuprofen (Motrin) 400 mg PO Q6H PRN PRN Reason: Fever Ketorolac Tromethamine (Toradol) 30 mg IVPUSH Q6H PRN PRN Reason: Pain (moderate 4-6) Lorazepam (Ativan) 1 mg IV Q6H PRN PRN Reason: Nausea/Vomiting Morphine Sulfate (Morphine) 2 mg IVPUSH Q2H PRN PRN Reason: Pain (severe 7-10) Ondansetron HCl (Zofran Odt) 4 mg PO Q6H PRN PRN Reason: Nausea able to take PO Ondansetron HCl (Zofran) 4 mg IV Q4H PRN PRN Reason: Nausea/Vomiting Oxycodone HCl (Oxycodone) 10 mg PO Q4H PRN PRN Reason: Pain (moderate 4-6) Tamsulosin HCl (Flomax) 0.4 mg PO DAILY [facility] Last Admin: 07/01/18 09:05 Dose: 0.4 mg Discontinued Medications Sodium Chloride (Normal Saline) 1,000 mls @ 1,000 mls/hr IV ASDIRECTED [facility] Last Admin: 06/30/18 18:25 Dose: 1,000 mls/hr Acetaminophen 1,000 mg/ Premix 100 mls @ 400 mls/hr IV NOW ONE Stop: 06/30/18 19:37 Last Admin: 06/30/18 19:41 Dose: 400 mls/hr Sodium Chloride (Normal Saline) 80 mls @ 3.5 mls/sec IV ONETIME ONE Stop: 06/30/18 19:57 Last Admin: 06/30/18 20:28 Dose: 3 mls/sec Lactated Ringer's (Ringers, Lactated) 1,000 mls @ 250 mls/hr IV ASDIRECTED [facility] Ceftriaxone Sodium 2 gm/ (Sodium Chloride) 50 mls @ 100 mls/hr IV ONETIME ONE Stop: 06/30/18 23:09 Last Admin: 06/30/18 22:56 Dose: 100 mls/hr Lactated Ringer's (Ringers, Lactated) 1,000 mls @ 999 mls/hr IV ASDIRECTED [facility] Ceftriaxone Sodium 2 gm/ (Sodium Chloride) 50 mls @ 100 mls/hr IV Q8H [facility] Last Admin: 07/01/18 06:46 Dose: 100 mls/hr Levofloxacin/Dextrose 750 mg/ (Premix) 150 mls @ 100 mls/hr IV Q24H [facility] Last Admin: 06/30/18 23:55 Dose: 100 mls/hr Sodium Chloride (Normal Saline) 1,000 mls @ 999 mls/hr IV ASDIRECTED [facility] Last Admin: 06/30/18 23:01 Dose: 999 mls/hr Sodium Chloride (Normal Saline) 1,000 mls @ 125 mls/hr IV ASDIRECTED [facility] Last Admin: 07/01/18 11:04 Dose: 125 mls/hr Ibuprofen (Motrin) 800 mg PO ONETIME ONE Stop: 06/30/18 21:31 Last Admin: 06/30/18 21:52 Dose: 800 mg Ibuprofen (Motrin) 800 mg PO Q6H PRN PRN Reason: Pain (mild 1-3) Last Admin: 07/01/18 06:25 Dose: 800 mg Iopamidol (Isovue-300 (61%)) 100 ml IV . DIRECTED [facility] Last Admin: 06/30/18 20:28 Dose: 100 ml Ketorolac Tromethamine (Toradol) 30 mg IVPUSH ONETIME ONE Stop: 06/30/18 23:06 Last Admin: 06/30/18 23:21 Dose: 30 mg Lidocaine HCl (Xylocaine 2% Jelly) 10 ml MUCMEM ONETIME ONE Stop: 06/30/18 17:17 Last Admin: 06/30/18 17:25 Dose: 10 ml Lidocaine HCl (Xylocaine 2% Jelly) Confirm Administered Dose 10 ml .ROUTE .STK- MED ONE Stop: 06/30/18 17:16 Last Admin: 06/30/18 17:25 Dose: Not Given Sodium Chloride (Saline Flush) 10 ml FLUSH ASDIRECTED PRN PRN Reason: Keep Vein Open Last Admin: 06/30/18 18:26 Dose: 10 ml Sodium Chloride (Saline Flush) 10 ml FLUSH ONETIME ONE Stop: 06/30/18 19:57 Last Admin: 06/30/18 20:28 Dose: 10 ml - Exam Quality Assessment: DVT Prophylaxis General: Alert, Oriented, Cooperative, Mild Distress Lungs: Clear to Auscultation, Normal Respiratory Effort Cardiovascular: Regular Rate, Regular Rhythm, No Murmurs GI/Abdominal Exam: Soft, Non-Tender, No Organomegaly, No Distention Extremities: Non-Tender, No Pedal Edema Skin: Warm, Dry, Intact - Problem List Review Problem List Initiated/Reviewed/Updated: Yes - My Orders Last 24 Hours: My Active Orders 07/01/18 09:39 Chest 2V [CR] Stat 07/01/18 11:34 Ibuprofen [Motrin] 400 mg PO Q6H PRN 07/01/18 11:45 Sodium Chloride 0.9% @ 75 MLS/HR(1000ml) Sodium Chloride 0.9% [Normal Saline] 1 ,000 ml IV ASDIRECTED cefTRIAXone [Rocephin] 1 gm Sodium Chloride 0.9% [Normal Saline] 50 ml IV Q24H 07/02/18 05:00 BASIC METABOLIC PANEL,BMP [CHEM] Timed CBC WITH AUTO DIFF [HEME] Timed MAGNESIUM [CHEM] Timed - Plan Plan:: Assessment and plan - Urinary tract infecton, early Sepsis-no other obvious source of infection identified with diagnostic studies, labs, history, or examination. -Decrease IV fluids to 75 mL/h -Rocephin 1 g IV every 24 hours, levofloxacin every 24 hours -blood and urine culture pending Urinary retention-secondary to prostatic enlargement -Jean catheter placed in emergency department -We'll attempt to remove catheter over the next few days of hospital stay Maintenance issues - - DVT prophylaxis -Lovenox 40mg subcut - GI prophylaxis - PPI Protonix 40 mg daily - Nutrition - regular diet - Jean catheter - indwelling cath CODE STATUS - FULL Admission justification - This patient will be admitted for inpatient services and is medically appropriate meeting medical necessity for inpatient admission as outlined in my documentation. I reasonably expect the patient will require inpatient services that span a period time over 2 midnights. I reasonably expect this patient to be discharged or transferred within 96 hours [facility]. Disposition - anticipate discharge to home after the hospital stay Primary care physician - Katiuska GUNN. Hospitialist: Diego Orourke M.D.
[2018-07-01] MEDS: Ibuprofen 400 MG Tab PO PRN (21:10)
[2018-07-01] MEDS: Levofloxacin/Dextrose 5%-Water 750 MG in Premix Bag 1 BAG IV SCH (23:17)
[2018-07-02] MEDS: cefTRIAXone 1 GM in Sodium Chloride 0.9% 50 ML IV SCH (05:58)
[2018-07-02] MEDS: Ibuprofen 400 MG Tab PO PRN (08:23)
[2018-07-02] MEDS: Tamsulosin 0.4 MG Cap.ER PO SCH (08:24)
[2018-07-02] MEDS: Enoxaparin 40 MG/0.4 ML Syringe SUBCUT SCH (08:24)
[2018-07-02] MEDS ORDERED: Potassium Chloride 20 MEQ Tab.ER PO ONE (09:00)
--- NOTE | 2018-07-02 09:09 | CR ---
Chest 2V HISTORY: Fever COMPARISON: None FINDINGS: Lungs appear clear and normally aerated. Cardiomediastinal silhouette is within normal limits. No vas cular redistribution or pleural fluid can be seen. Bony structures and soft tissues are unremarkable. IMPRESSION: No acute chest abnormality identified.
--- NOTE | 2018-07-02 11:01 | PCM.PN ---
- General Info Date of Service: 07/02/18 Functional Status: Reports: Pain Controlled, Tolerating Diet - Review of Systems General: Reports: Fever Gastrointestinal: Denies: Abdominal Pain Systems Review Comment:: There were no acute events overnight but he did have at least a low-grade fever much of the night. He did have some chilling in the evening with the highest fever recorded. No complaints of abdominal pain. He does feel weak but thinks his strength has been improving each day. Appetite has been good. No cough or shortness of breath. Urine culture is growing coagulase-negative staph. - Patient Data Vitals - Most Recent: Last Vital Signs Temp 36.3 C 07/02/18 10:54 Pulse 67 07/02/18 10:54 Resp 20 07/02/18 10:54 BP 108/51 L 07/02/18 10:54 Pulse Ox 97 07/02/18 07:40 Weight - Most Recent: 80.5 kg I&O - Last 24 Hours: Intake & Output 07/01/18 07/02/18 07/02/18 22:59 06:59 14:59 Intake Total 1752 240 Output Total 1950 180 Balance -198 60 Lab Results Last 24 Hours: Laboratory Results - last 24 hr 07/02/18 07/02/18 07/02/18 Range/Units 04:30 04:30 04:30 WBC 18.4 H (4.5-11.0) K/uL RBC 3.85 L (4.30-5.90) M/uL Hgb 11.9 L (12.0-15.0) g/dL Hct 36.3 L (40.0-54.0) % MCV 94 (80-98) fL MCH 31 (27-31) pg MCHC 33 (32-36) % Plt Count 150 (150-400) K/uL Neut % (Auto) 84 H (36-66) % Lymph % (Auto) 6 L (24-44) % [place] % (Auto) 10 H (2-6) % Eos % (Auto) 0 L (2-4) % Baso % (Auto) 0 (0-1) % Sodium 136 L (140-148) mmol/L Potassium 3.4 L (3.6-5.2) mmol/L Chloride 107 (100-108) mmol/L Carbon Dioxide 19 L (21-32) mmol/L Anion Gap 13.4 (5.0-14.0) mmol/L BUN 18 (7-18) mg/dL Creatinine 1.1 (0.8-1.3) mg/dL Est Cr Clr Drug Dosing 61.22 mL/min Estimated GFR (MDRD) > 60 (>60) Glucose 93 (74-106) mg/dL Lactic Acid 1.0 (0.4-2.0) mmol/L Calcium 7.5 L (8.5-10.1) mg/dL Magnesium 1.8 (1.8-2.4) mg/dL Curt Results Last 24 Hours: Microbiology 06/30/18 18:18 Urine Culture - Preliminary Urine, Clean Catch 06/30/18 19:59 Aerobic Blood Culture - Preliminary Blood - Arm, Left NO GROWTH AFTER 1 DAY Anaerobic Blood Culture - Preliminary NO GROWTH AFTER 1 DAY 06/30/18 18:20 Aerobic Blood Culture - Preliminary Blood NO GROWTH AFTER 1 DAY Anaerobic Blood Culture - Preliminary NO GROWTH AFTER 1 DAY Med Orders - Current: Current Medications Acetaminophen (Tylenol) 650 mg PO Q4H PRN PRN Reason: Pain (Mild 1-3)/fever Last Admin: 07/01/18 15:52 Dose: 650 mg Albuterol (Proventil Neb Soln) 2.5 mg NEB Q4H PRN PRN Reason: Shortness Of Breath/wheezing Albuterol/Ipratropium (Duoneb 3.0-0.5 Mg/3 Ml) 3 ml NEB QID PRN PRN Reason: Shortness Of Breath/wheezing Bisacodyl (Dulcolax) 5 mg PO DAILY PRN PRN Reason: Constipation Docusate Sodium (Colace) 100 mg PO BID PRN PRN Reason: Constipation Enoxaparin Sodium (Lovenox) 40 mg SUBCUT DAILY [facility] Last Admin: 07/02/18 08:24 Dose: 40 mg Levofloxacin/Dextrose 750 mg/ (Premix) 150 mls @ 100 mls/hr IV Q24H [facility] Last Admin: 07/01/18 23:17 Dose: 100 mls/hr Sodium Chloride (Normal Saline) 1,000 mls @ 75 mls/hr IV ASDIRECTED [facility] Last Admin: 07/02/18 04:35 Dose: 75 mls/hr Ceftriaxone Sodium 1 gm/ (Sodium Chloride) 50 mls @ 100 mls/hr IV Q24H [facility] Last Admin: 07/02/18 05:58 Dose: 100 mls/hr Vancomycin HCl 1.25 gm/ Sodium (Chloride) 250 mls @ 167 mls/hr IV Q12H [facility] Last Admin: 07/02/18 10:37 Dose: 167 mls/hr Ibuprofen (Motrin) 400 mg PO Q6H PRN PRN Reason: Fever Last Admin: 07/02/18 08:23 Dose: 400 mg Lorazepam (Ativan) 1 mg IV Q6H PRN PRN Reason: Nausea/Vomiting Morphine Sulfate (Morphine) 2 mg IVPUSH Q2H PRN PRN Reason: Pain (severe 7-10) Ondansetron HCl (Zofran Odt) 4 mg PO Q6H PRN PRN Reason: Nausea able to take PO Ondansetron HCl (Zofran) 4 mg IV Q4H PRN PRN Reason: Nausea/Vomiting Oxycodone HCl (Oxycodone) 10 mg PO Q4H PRN PRN Reason: Pain (moderate 4-6) Tamsulosin HCl (Flomax) 0.4 mg PO DAILY [facility] Last Admin: 07/02/18 08:24 Dose: 0.4 mg Discontinued Medications Sodium Chloride (Normal Saline) 1,000 mls @ 1,000 mls/hr IV ASDIRECTED [facility] Last Admin: 06/30/18 18:25 Dose: 1,000 mls/hr Acetaminophen 1,000 mg/ Premix 100 mls @ 400 mls/hr IV NOW ONE Stop: 06/30/18 19:37 Last Admin: 06/30/18 19:41 Dose: 400 mls/hr Sodium Chloride (Normal Saline) 80 mls @ 3.5 mls/sec IV ONETIME ONE Stop: 06/30/18 19:57 Last Admin: 06/30/18 20:28 Dose: 3 mls/sec Lactated Ringer's (Ringers, Lactated) 1,000 mls @ 250 mls/hr IV ASDIRECTED [facility] Ceftriaxone Sodium 2 gm/ (Sodium Chloride) 50 mls @ 100 mls/hr IV ONETIME ONE Stop: 06/30/18 23:09 Last Admin: 06/30/18 22:56 Dose: 100 mls/hr Lactated Ringer's (Ringers, Lactated) 1,000 mls @ 999 mls/hr IV ASDIRECTED [facility] Ceftriaxone Sodium 2 gm/ (Sodium Chloride) 50 mls @ 100 mls/hr IV Q8H [facility] Last Admin: 07/01/18 06:46 Dose: 100 mls/hr Levofloxacin/Dextrose 750 mg/ (Premix) 150 mls @ 100 mls/hr IV Q24H [facility] Last Admin: 06/30/18 23:55 Dose: 100 mls/hr Sodium Chloride (Normal Saline) 1,000 mls @ 999 mls/hr IV ASDIRECTED [facility] Last Admin: 06/30/18 23:01 Dose: 999 mls/hr Sodium Chloride (Normal Saline) 1,000 mls @ 125 mls/hr IV ASDIRECTED [facility] Last Admin: 07/01/18 11:04 Dose: 125 mls/hr Ibuprofen (Motrin) 800 mg PO ONETIME ONE Stop: 06/30/18 21:31 Last Admin: 06/30/18 21:52 Dose: 800 mg Ibuprofen (Motrin) 800 mg PO Q6H PRN PRN Reason: Pain (mild 1-3) Last Admin: 07/01/18 06:25 Dose: 800 mg Iopamidol (Isovue-300 (61%)) 100 ml IV . DIRECTED [facility] Last Admin: 06/30/18 20:28 Dose: 100 ml Ketorolac Tromethamine (Toradol) 30 mg IVPUSH Q6H PRN PRN Reason: Pain (moderate 4-6) Ketorolac Tromethamine (Toradol) 30 mg IVPUSH ONETIME ONE Stop: 06/30/18 23:06 Last Admin: 06/30/18 23:21 Dose: 30 mg Lidocaine HCl (Xylocaine 2% Jelly) 10 ml MUCMEM ONETIME ONE Stop: 06/30/18 17:17 Last Admin: 06/30/18 17:25 Dose: 10 ml Lidocaine HCl (Xylocaine 2% Jelly) Confirm Administered Dose 10 ml .ROUTE .STK- MED ONE Stop: 06/30/18 17:16 Last Admin: 06/30/18 17:25 Dose: Not Given Potassium Chloride (Klor-Con M20) 40 meq PO ONETIME ONE Stop: 07/02/18 09:01 Last Admin: 07/02/18 10:36 Dose: 40 meq Sodium Chloride (Saline Flush) 10 ml FLUSH ASDIRECTED PRN PRN Reason: Keep Vein Open Last Admin: 06/30/18 18:26 Dose: 10 ml Sodium Chloride (Saline Flush) 10 ml FLUSH ONETIME ONE Stop: 06/30/18 19:57 Last Admin: 06/30/18 20:28 Dose: 10 ml - Exam Quality Assessment: No: Supplemental Oxygen General: Alert, Oriented, Cooperative, No Acute Distress Lungs: Normal Respiratory Effort Cardiovascular: Regular Rate, Regular Rhythm GI/Abdominal Exam: Soft, No Distention Extremities: No Pedal Edema Psy/Mental Status: Alert, Normal Affect - Problem List Review Problem List Initiated/Reviewed/Updated: Yes - My Orders Last 24 Hours: My Active Orders 07/02/18 10:00 Vancomycin 1.25 gm Sodium Chloride 0.9% [Normal Saline] 250 ml IV Q12H 07/03/18 05:00 BASIC METABOLIC PANEL,BMP [CHEM] Timed CBC W/O DIFF,HEMOGRAM [HEME] Timed (1) - Plan Plan:: Assessment and plan - Urinary tract infecton, early Sepsis - no other obvious source of infection identified. Urine culture is growing coag negative staph with susceptibilities pending. He was febrile much of the night though fever curve is improving. White blood cell count has risen slightly. Planning to add vancomycin for additional staph coverage until susceptibilities are available. -Saline lock IV -Continue ceftriaxone 1 g IV every 24 hours, levofloxacin every 24 hours -Start vancomycin -blood and urine culture pending Acute Urinary retention - secondary to prostatic enlargement compensated by infection. -Jean catheter placed in emergency department -Catheter removal and trial of voiding tomorrow morning Maintenance issues - - DVT prophylaxis - enoxaparin 40mg subcut - GI prophylaxis - PPI Protonix 40 mg daily - Nutrition - regular diet - Jean catheter - indwelling cath, plan to remove in the morning for trial of voiding Disposition - anticipate discharge to home after the hospital stay Primary care physician - Katiuska Lopez M.D.
[2018-07-02] MEDS: Acetaminophen 325 MG Tab PO PRN (23:12)
[2018-07-02] MEDS: Levofloxacin/Dextrose 5%-Water 750 MG in Premix Bag 1 BAG IV SCH (23:42)
[2018-07-03] MEDS: Ibuprofen 400 MG Tab PO PRN ×2 (01:16→13:41)
[2018-07-03] MEDS: cefTRIAXone 1 GM in Sodium Chloride 0.9% 50 ML IV SCH (05:40)
[2018-07-03] MEDS: Enoxaparin 40 MG/0.4 ML Syringe SUBCUT SCH (08:43)
[2018-07-03] MEDS: Tamsulosin 0.4 MG Cap.ER PO SCH (08:43)
--- NOTE | 2018-07-03 12:43 | PCM.PN ---
- General Info Date of Service: 07/03/18 Functional Status: Reports: Tolerating Diet - Review of Systems General: Reports: Fever Gastrointestinal: Denies: Abdominal Pain Systems Review Comment:: Patient was febrile overnight and had some associated chills. He feels fairly well this morning and offers no concerns. No abdominal pain or nausea. His Jean catheter was removed this morning and he has been able to pass urine several times. Did have a bowel movement today. Urine culture results including sensitivities are available. - Patient Data Vitals - Most Recent: Last Vital Signs Temp 36.8 C 07/03/18 11:00 Pulse 70 07/03/18 11:00 Resp 16 07/03/18 11:00 BP 147/68 H 07/03/18 11:00 Pulse Ox 98 07/03/18 11:00 Weight - Most Recent: 80.5 kg I&O - Last 24 Hours: Intake & Output 07/02/18 07/03/18 07/03/18 22:59 06:59 14:59 Intake Total 250 200 240 Output Total 925 3400 Balance -675 -3200 240 Lab Results Last 24 Hours: Laboratory Results - last 24 hr 07/03/18 07/03/18 Range/Units 04:00 04:30 WBC 16.9 H (4.5-11.0) K/uL RBC 4.06 L (4.30-5.90) M/uL Hgb 12.7 (12.0-15.0) g/dL Hct 37.5 L (40.0-54.0) % MCV 92 (80-98) fL MCH 31 (27-31) pg MCHC 34 (32-36) % Plt Count 152 (150-400) K/uL Sodium 139 L (140-148) mmol/L Potassium 3.8 (3.6-5.2) mmol/L Chloride 110 H (100-108) mmol/L Carbon Dioxide 21 (21-32) mmol/L Anion Gap 11.8 (5.0-14.0) mmol/L BUN 14 (7-18) mg/dL Creatinine 1.0 (0.8-1.3) mg/dL Est Cr Clr Drug Dosing 67.69 mL/min Estimated GFR (MDRD) > 60 (>60) Glucose 95 (74-106) mg/dL Calcium 7.7 L (8.5-10.1) mg/dL Curt Results Last 24 Hours: Microbiology 06/30/18 18:18 Urine Culture - Final Urine, Clean Catch Staph Hominis Ss Hominis 06/30/18 19:59 Aerobic Blood Culture - Preliminary Blood - Arm, Left NO GROWTH AFTER 2 DAYS Anaerobic Blood Culture - Preliminary NO GROWTH AFTER 2 DAYS 06/30/18 18:20 Aerobic Blood Culture - Preliminary Blood NO GROWTH AFTER 2 DAYS Anaerobic Blood Culture - Preliminary NO GROWTH AFTER 2 DAYS Med Orders - Current: Current Medications Acetaminophen (Tylenol) 650 mg PO Q4H PRN PRN Reason: Pain (Mild 1-3)/fever Last Admin: 07/02/18 23:12 Dose: 650 mg Albuterol (Proventil Neb Soln) 2.5 mg NEB Q4H PRN PRN Reason: Shortness Of Breath/wheezing Albuterol/Ipratropium (Duoneb 3.0-0.5 Mg/3 Ml) 3 ml NEB QID PRN PRN Reason: Shortness Of Breath/wheezing Bisacodyl (Dulcolax) 5 mg PO DAILY PRN PRN Reason: Constipation Ciprofloxacin (Ciprofloxacin Hcl) 500 mg PO BID [facility] Docusate Sodium (Colace) 100 mg PO BID PRN PRN Reason: Constipation Ibuprofen (Motrin) 400 mg PO Q6H PRN PRN Reason: Fever Last Admin: 07/03/18 01:16 Dose: 400 mg Lorazepam (Ativan) 1 mg IV Q6H PRN PRN Reason: Nausea/Vomiting Ondansetron HCl (Zofran Odt) 4 mg PO Q6H PRN PRN Reason: Nausea able to take PO Ondansetron HCl (Zofran) 4 mg IV Q4H PRN PRN Reason: Nausea/Vomiting Oxycodone HCl (Oxycodone) 10 mg PO Q4H PRN PRN Reason: Pain (moderate 4-6) Tamsulosin HCl (Flomax) 0.4 mg PO DAILY [facility] Last Admin: 07/03/18 08:43 Dose: 0.4 mg Discontinued Medications Enoxaparin Sodium (Lovenox) 40 mg SUBCUT DAILY [facility] Last Admin: 07/03/18 08:43 Dose: 40 mg Sodium Chloride (Normal Saline) 1,000 mls @ 1,000 mls/hr IV ASDIRECTED [facility] Last Admin: 06/30/18 18:25 Dose: 1,000 mls/hr Acetaminophen 1,000 mg/ Premix 100 mls @ 400 mls/hr IV NOW ONE Stop: 06/30/18 19:37 Last Admin: 06/30/18 19:41 Dose: 400 mls/hr Sodium Chloride (Normal Saline) 80 mls @ 3.5 mls/sec IV ONETIME ONE Stop: 06/30/18 19:57 Last Admin: 06/30/18 20:28 Dose: 3 mls/sec Lactated Ringer's (Ringers, Lactated) 1,000 mls @ 250 mls/hr IV ASDIRECTED JAM[facility]ID Ceftriaxone Sodium 2 gm/ (Sodium Chloride) 50 mls @ 100 mls/hr IV ONETIME ONE Stop: 06/30/18 23:09 Last Admin: 06/30/18 22:56 Dose: 100 mls/hr Lactated Ringer's (Ringers, Lactated) 1,000 mls @ 999 mls/hr IV ASDIRECTED [facility] Ceftriaxone Sodium 2 gm/ (Sodium Chloride) 50 mls @ 100 mls/hr IV Q8H [facility] Last Admin: 07/01/18 06:46 Dose: 100 mls/hr Levofloxacin/Dextrose 750 mg/ (Premix) 150 mls @ 100 mls/hr IV Q24H [facility] Last Admin: 06/30/18 23:55 Dose: 100 mls/hr Sodium Chloride (Normal Saline) 1,000 mls @ 999 mls/hr IV ASDIRECTED [facility] Last Admin: 06/30/18 23:01 Dose: 999 mls/hr Sodium Chloride (Normal Saline) 1,000 mls @ 125 mls/hr IV ASDIRECTED [facility] Last Admin: 07/01/18 11:04 Dose: 125 mls/hr Levofloxacin/Dextrose 750 mg/ (Premix) 150 mls @ 100 mls/hr IV Q24H [facility] Last Admin: 07/02/18 23:42 Dose: 100 mls/hr Sodium Chloride (Normal Saline) 1,000 mls @ 75 mls/hr IV ASDIRECTED [facility] Last Admin: 07/02/18 04:35 Dose: 75 mls/hr Ceftriaxone Sodium 1 gm/ (Sodium Chloride) 50 mls @ 100 mls/hr IV Q24H [facility] Last Admin: 07/03/18 05:40 Dose: 100 mls/hr Vancomycin HCl 1.25 gm/ Sodium (Chloride) 250 mls @ 167 mls/hr IV Q12H [facility] Last Admin: 07/02/18 22:07 Dose: 167 mls/hr Ibuprofen (Motrin) 800 mg PO ONETIME ONE Stop: 06/30/18 21:31 Last Admin: 06/30/18 21:52 Dose: 800 mg Ibuprofen (Motrin) 800 mg PO Q6H PRN PRN Reason: Pain (mild 1-3) Last Admin: 07/01/18 06:25 Dose: 800 mg Iopamidol (Isovue-300 (61%)) 100 ml IV . DIRECTED [facility] Last Admin: 06/30/18 20:28 Dose: 100 ml Ketorolac Tromethamine (Toradol) 30 mg IVPUSH Q6H PRN PRN Reason: Pain (moderate 4-6) Ketorolac Tromethamine (Toradol) 30 mg IVPUSH ONETIME ONE Stop: 06/30/18 23:06 Last Admin: 06/30/18 23:21 Dose: 30 mg Lidocaine HCl (Xylocaine 2% Jelly) 10 ml MUCMEM ONETIME ONE Stop: 06/30/18 17:17 Last Admin: 06/30/18 17:25 Dose: 10 ml Lidocaine HCl (Xylocaine 2% Jelly) Confirm Administered Dose 10 ml .ROUTE .STK- MED ONE Stop: 06/30/18 17:16 Last Admin: 06/30/18 17:25 Dose: Not Given Morphine Sulfate (Morphine) 2 mg IVPUSH Q2H PRN PRN Reason: Pain (severe 7-10) Potassium Chloride (Klor-Con M20) 40 meq PO ONETIME ONE Stop: 07/02/18 09:01 Last Admin: 07/02/18 10:36 Dose: 40 meq Sodium Chloride (Saline Flush) 10 ml FLUSH ASDIRECTED PRN PRN Reason: Keep Vein Open Last Admin: 06/30/18 18:26 Dose: 10 ml Sodium Chloride (Saline Flush) 10 ml FLUSH ONETIME ONE Stop: 06/30/18 19:57 Last Admin: 06/30/18 20:28 Dose: 10 ml - Exam Quality Assessment: No: Supplemental Oxygen General: Alert, Oriented, Cooperative, No Acute Distress Lungs: Normal Respiratory Effort Cardiovascular: Regular Rate, Regular Rhythm GI/Abdominal Exam: Soft, No Distention Extremities: No Pedal Edema Psy/Mental Status: Alert, Normal Affect - Problem List Review Problem List Initiated/Reviewed/Updated: Yes - My Orders Last 24 Hours: My Active Orders 07/02/18 14:25 Convert IV to Saline Lock [OM.PC] Routine 07/03/18 21:00 Ciprofloxacin [Ciprofloxacin HCl] 500 mg PO BID - Plan Plan:: Assessment and plan - Urinary tract infecton, early Sepsis - complicated infection with sepsis, possibly prostatitis. no other obvious source of infection identified. Urine culture did grow out staph hominis which was sensitive to essentially all antibiotics. He does have some ongoing fevers and his white count is still elevated but clinically he looks well. The CT scan performed at admission did not show evidence for abscess or other pathology. -Saline lock IV -Change antibiotics to ciprofloxacin twice daily Acute Urinary retention - secondary to prostatic enlargement compensated by infection. Doing well after Jean catheter removed this morning. -Jean catheter removed this morning Maintenance issues - - DVT prophylaxis - enoxaparin 40mg subcut - GI prophylaxis - PPI Protonix 40 mg daily - Nutrition - regular diet - Jean catheter - indwelling catheter removed this morning Disposition - anticipate discharge to home after the hospital stay, possibly tomorrow if ongoing improvement overnight Primary care physician - Katiuska Lopez M.D.
[2018-07-03] MEDS: Ciprofloxacin 500 MG Tab PO SCH (20:13)
[2018-07-04] MEDS: Ciprofloxacin 500 MG Tab PO SCH (08:55)
[2018-07-04] MEDS: Tamsulosin 0.4 MG Cap.ER PO SCH (08:56)
--- NOTE | 2018-07-04 11:05 | PCM.DCSUM1 ---
Discharge Summary - Hospital Course Brief History: 63-year-old male with history of BPH who presented with urinary retention, fever and weakness. He was admitted for management of a complicated urinary tract infection with early evidence for sepsis. Diagnosis: Stroke: No - Discharge Data Discharge Date: 07/04/18 Discharge Disposition: Home, Self-Care 01 Condition: Good - Discharge Diagnosis/Problem(s) (1) Complicated UTI (urinary tract infection) SNOMED Code(s): 24665910 ICD Code: N39.0 - URINARY TRACT INFECTION, SITE NOT SPECIFIED Status: Acute (2) Sepsis SNOMED Code(s): 83085709 ICD Code: A41.9 - SEPSIS, UNSPECIFIED ORGANISM Status: Acute Qualifiers: Sepsis type: sepsis due to unspecified organism Qualified Code(s): A41.9 - Sepsis, unspecified organism (3) Acute urinary retention SNOMED Code(s): 934770702 ICD Code: R33.8 - OTHER RETENTION OF URINE Status: Acute - Patient Summary/Data Hospital Course: Mustapha presented to the emergency room with urinary retention, fever, weakness and confusion. Workup in the emergency room was suggestive of sepsis though it was mild. Suspected urinary source with no other obvious source identified. He was treated with IV fluids and started on broad-spectrum antibiotics. His evidence for sepsis resolved fairly quickly following these treatments. Over the next couple of days he did continue to have fevers but his temperature curve did slowly improve. Symptomatically he was feeling much better even by the day after admission. His strength and appetite slowly but steadily improved throughout the course of the hospital stay. Antibiotic coverage was continued and then expanded when his urine culture was growing a gram positive cocci in the setting of ongoing fevers. Vancomycin was added and continued until his urine culture was final. Once we determined that he had a coagulase-negative staph growing in the urine transitioned him to ciprofloxacin based on sensitivities. The morning before discharge we did remove his Jean catheter which was placed for acute urinary retention in the emergency room. He has been able to void since that time. The night prior to discharge was a good night and he did not have any fevers. His hospital stay was slightly longer than expected because of the persistent fevers despite what was thought to be adequate antibiotic coverage. He is now afebrile and feeling well and safe for hospital discharge. I suspect his infection may have been localized in the prostate given the urinary retention but at this time I am unable to prove this. He has continued to be able to pass urine with no difficulties even after the catheter was removed. He will continue on his tamsulosin. Given the complicated nature of this infection he will be treated for a total of 14 days with the ciprofloxacin. He does have follow-up with his primary care next week and has an appointment with his urologist in about one month. He was encouraged to drink plenty of fluids each day to help reduce the risk of recurrent infections. - Patient Instructions Diet: Regular Diet as Tolerated, Drink 8-10+ Glasses/Day Activity: As Tolerated Driving: May Drive Today Showering/Bathing: May Shower Notify Provider of: Fever, Increased Pain, Nausea and/or Vomiting Other/Special Instructions: 1. You were in the hospital for a complicated urinary tract infection that I suspect was localized to your prostate. The infection was bad enough that you had mild evidence for sepsis. Your urine culture grew out a bacteria in the group of coagulase-negative Staphylococcus. The bacteria was sensitive to ciprofloxacin. This will be the antibiotic that you continue to take after hospital discharge. I recommend 9-1/2 more days of antibiotic therapy which you will take twice daily. Your next dose is due tonight. Drinking plenty of fluids each day can help reduce the risk of recurrent infections. 2. Continue your other home medications as previously prescribed. 3. Follow up with your regular doctor as scheduled next week and your urologist as scheduled in July. 4. Seek medical attention if you develop fever greater than 101, you have persistent vomiting or severe diarrhea - Discharge Plan *PRESCRIPTION DRUG MONITORING PROGRAM REVIEWED*: Not Applicable *COPY OF PRESCRIPTION DRUG MONITORING REPORT IN PATIENT NELIDA: Not Applicable Prescriptions/Med Rec: Ciprofloxacin HCl 500 mg PO BID #38 tablet Home Medications: Home Meds Tamsulosin HCl 0.4 mg PO DAILY 06/30/18 [History] Iron 18 mg PO QAM 07/01/18 [History] Ciprofloxacin HCl 500 mg PO BID #38 tablet 07/04/18 [Rx] Patient Handouts: Urinary Tract Infection, Adult, Ciprofloxacin tablets Referrals: PCP,None [Primary Care Provider] - (f/u with Dr Moser as scheduled next week ) - Discharge Summary/Plan Comment DC Time >30 min.: No - Patient Data Vitals - Most Recent: Last Vital Signs Temp 37.2 C 07/04/18 08:06 Pulse 67 07/04/18 08:06 Resp 16 07/04/18 08:06 BP 166/76 H 07/04/18 08:06 Pulse Ox 99 07/04/18 08:06 Weight - Most Recent: 80.5 kg I&O - Last 24 hours: Intake & Output 07/03/18 07/04/18 07/04/18 22:59 06:59 14:59 Intake Total 600 Balance 600 JERRI Results - Last 24 hrs: Microbiology 06/30/18 19:59 Aerobic Blood Culture - Preliminary Blood - Arm, Left NO GROWTH AFTER 3 DAYS Anaerobic Blood Culture - Preliminary NO GROWTH AFTER 3 DAYS 06/30/18 18:20 Aerobic Blood Culture - Preliminary Blood NO GROWTH AFTER 3 DAYS Anaerobic Blood Culture - Preliminary NO GROWTH AFTER 3 DAYS 06/30/18 18:18 Urine Culture - Final Urine, Clean Catch Staph Hominis Ss Hominis Med Orders - Current: Current Medications Acetaminophen (Tylenol) 650 mg PO Q4H PRN PRN Reason: Pain (Mild 1-3)/fever Last Admin: 07/02/18 23:12 Dose: 650 mg Albuterol (Proventil Neb Soln) 2.5 mg NEB Q4H PRN PRN Reason: Shortness Of Breath/wheezing Albuterol/Ipratropium (Duoneb 3.0-0.5 Mg/3 Ml) 3 ml NEB QID PRN PRN Reason: Shortness Of Breath/wheezing Bisacodyl (Dulcolax) 5 mg PO DAILY PRN PRN Reason: Constipation Ciprofloxacin (Ciprofloxacin Hcl) 500 mg PO BID [facility] Last Admin: 07/04/18 08:55 Dose: 500 mg Docusate Sodium (Colace) 100 mg PO BID PRN PRN Reason: Constipation Ibuprofen (Motrin) 400 mg PO Q6H PRN PRN Reason: Fever Last Admin: 07/03/18 13:41 Dose: 400 mg Lorazepam (Ativan) 1 mg IV Q6H PRN PRN Reason: Nausea/Vomiting Ondansetron HCl (Zofran Odt) 4 mg PO Q6H PRN PRN Reason: Nausea able to take PO Ondansetron HCl (Zofran) 4 mg IV Q4H PRN PRN Reason: Nausea/Vomiting Oxycodone HCl (Oxycodone) 10 mg PO Q4H PRN PRN Reason: Pain (moderate 4-6) Tamsulosin HCl (Flomax) 0.4 mg PO DAILY [facility] Last Admin: 07/04/18 08:56 Dose: 0.4 mg Discontinued Medications Enoxaparin Sodium (Lovenox) 40 mg SUBCUT DAILY [facility] Last Admin: 07/03/18 08:43 Dose: 40 mg Sodium Chloride (Normal Saline) 1,000 mls @ 1,000 mls/hr IV ASDIRECTED [facility] Last Admin: 06/30/18 18:25 Dose: 1,000 mls/hr Acetaminophen 1,000 mg/ Premix 100 mls @ 400 mls/hr IV NOW ONE Stop: 06/30/18 19:37 Last Admin: 06/30/18 19:41 Dose: 400 mls/hr Sodium Chloride (Normal Saline) 80 mls @ 3.5 mls/sec IV ONETIME ONE Stop: 06/30/18 19:57 Last Admin: 06/30/18 20:28 Dose: 3 mls/sec Lactated Ringer's (Ringers, Lactated) 1,000 mls @ 250 mls/hr IV ASDIRECTED [facility] Ceftriaxone Sodium 2 gm/ (Sodium Chloride) 50 mls @ 100 mls/hr IV ONETIME ONE Stop: 06/30/18 23:09 Last Admin: 06/30/18 22:56 Dose: 100 mls/hr Lactated Ringer's (Ringers, Lactated) 1,000 mls @ 999 mls/hr IV ASDIRECTED [facility] Ceftriaxone Sodium 2 gm/ (Sodium Chloride) 50 mls @ 100 mls/hr IV Q8H [facility] Last Admin: 07/01/18 06:46 Dose: 100 mls/hr Levofloxacin/Dextrose 750 mg/ (Premix) 150 mls @ 100 mls/hr IV Q24H [facility] Last Admin: 06/30/18 23:55 Dose: 100 mls/hr Sodium Chloride (Normal Saline) 1,000 mls @ 999 mls/hr IV ASDIRECTED [facility] Last Admin: 06/30/18 23:01 Dose: 999 mls/hr Sodium Chloride (Normal Saline) 1,000 mls @ 125 mls/hr IV ASDIRECTED [facility] Last Admin: 07/01/18 11:04 Dose: 125 mls/hr Levofloxacin/Dextrose 750 mg/ (Premix) 150 mls @ 100 mls/hr IV Q24H [facility] Last Admin: 07/02/18 23:42 Dose: 100 mls/hr Sodium Chloride (Normal Saline) 1,000 mls @ 75 mls/hr IV ASDIRECTED [facility] Last Admin: 07/02/18 04:35 Dose: 75 mls/hr Ceftriaxone Sodium 1 gm/ (Sodium Chloride) 50 mls @ 100 mls/hr IV Q24H [facility] Last Admin: 07/03/18 05:40 Dose: 100 mls/hr Vancomycin HCl 1.25 gm/ Sodium (Chloride) 250 mls @ 167 mls/hr IV Q12H [facility] Last Admin: 07/02/18 22:07 Dose: 167 mls/hr Ibuprofen (Motrin) 800 mg PO ONETIME ONE Stop: 06/30/18 21:31 Last Admin: 06/30/18 21:52 Dose: 800 mg Ibuprofen (Motrin) 800 mg PO Q6H PRN PRN Reason: Pain (mild 1-3) Last Admin: 07/01/18 06:25 Dose: 800 mg Iopamidol (Isovue-300 (61%)) 100 ml IV . DIRECTED [facility] Last Admin: 06/30/18 20:28 Dose: 100 ml Ketorolac Tromethamine (Toradol) 30 mg IVPUSH Q6H PRN PRN Reason: Pain (moderate 4-6) Ketorolac Tromethamine (Toradol) 30 mg IVPUSH ONETIME ONE Stop: 06/30/18 23:06 Last Admin: 06/30/18 23:21 Dose: 30 mg Lidocaine HCl (Xylocaine 2% Jelly) 10 ml MUCMEM ONETIME ONE Stop: 06/30/18 17:17 Last Admin: 06/30/18 17:25 Dose: 10 ml Lidocaine HCl (Xylocaine 2% Jelly) Confirm Administered Dose 10 ml .ROUTE .STK- MED ONE Stop: 06/30/18 17:16 Last Admin: 06/30/18 17:25 Dose: Not Given Morphine Sulfate (Morphine) 2 mg IVPUSH Q2H PRN PRN Reason: Pain (severe 7-10) Potassium Chloride (Klor-Con M20) 40 meq PO ONETIME ONE Stop: 07/02/18 09:01 Last Admin: 07/02/18 10:36 Dose: 40 meq Sodium Chloride (Saline Flush) 10 ml FLUSH ASDIRECTED PRN PRN Reason: Keep Vein Open Last Admin: 06/30/18 18:26 Dose: 10 ml Sodium Chloride (Saline Flush) 10 ml FLUSH ONETIME ONE Stop: 06/30/18 19:57 Last Admin: 06/30/18 20:28 Dose: 10 ml - Exam Quality Assessment: Denies: Supplemental Oxygen General: Reports: Alert, Oriented, Cooperative, No Acute Distress Lungs: Reports: Normal Respiratory Effort GI/Abdominal Exam: Soft, No Distention Extremities: No Pedal Edema Psy/Mental Status: Reports: Alert, Normal Affect
== END 2018-07-04 12:05 | disposition home or self-care (01) | DRG 720 ==
LOC: JP.ED 16:28 → JP.MS 22:43
PROVIDERS: ADMIT Hospitalist; ATTEND Internal Medicine
DX: A41.1 Sepsis due to other specified staphylococcus (principal); N39.0 Urinary tract infection, site not specified; N40.1 Benign prostatic hyperplasia with lower urinary tract symptoms; R33.8 Other retention of urine; Z79.2 Long term (current) use of antibiotics; Z86.19 Personal history of other infectious and parasitic diseases; Z87.440 Personal history of urinary (tract) infections; Z86.010 Personal history of colon polyps
CPT/HCPCS: 36415; 71046; 71046-26; 74178; 80048; 80053; 81001; 83605; 83735; 84153; 85025; 85027; 86140; 87040; 87086; 87088; 87186; 96361; 96374; 99285-25; A9270-GY; J0131; J0696; J1650; J1885; J1956; J3370; J7030; J7050; Q9967